=== PATIENT | female | born 1960 | race Caucasian/White ===

== ENCOUNTER 2018-12-01 11:14 | Observation (INO) | payer OTHER ==
[~2018-12-01] VITALS: Ht 170.2 cm; Wt 86.6 kg
[~2018-12-01 11:14] MED LIST: HYDROmorphone 2 MG/ML VIAL IV PRN; IV RINGERS,LACTATED 1000ML 1,000 ML IV SCH; LIDOCAINE 1% PF 2 ML VIAL. ID PRN; MORPHINE SULFATE 4 MG/ML VIAL. IV PRN; ONDANSETRON PF 4 MG/2 ML VIAL. IV PRN; PROCHLORPERAZINE 10 MG/2 ML VIAL. IV PRN; fentaNYL PF VIAL 100 MCG/2 ML VIAL IV PRN
[2018-12-01] MEDS ORDERED: ATOR10TA60 PO (11:32)
[2018-12-01] MEDS ORDERED: METF500T16 PO (11:33)
[2018-12-01] MEDS ORDERED: HYDR12.575 PO (11:33)
[2018-12-01] MEDS ORDERED: BLAC160C PO (11:34)
[2018-12-01] MEDS ORDERED: CALC300T5 PO (11:36)
[2018-12-01] MEDS ORDERED: cbd oil SL (11:38)
[2018-12-01] MEDS ORDERED: REMIFENTANIL 2 MG VIAL. IV ONE (12:19)
[2018-12-01] MEDS ORDERED: LIDOCAINE 1%/EPI 1:100,000 20 ML VIAL. ONE (12:25)
[2018-12-01] MEDS ORDERED: EPINEPHrine VIAL 30 MG/30 ML VIAL ONE (12:25)
[2018-12-01] MEDS ORDERED: BACITRACIN TOPICAL OINT 14GM TUBE. TP ONE (12:25)
[2018-12-01] MEDS ORDERED: 0.9 % SODIUM CHLORIDE 20 ML VIAL. IJ ONE ×2 (12:42)
[2018-12-01] MEDS ORDERED: LIDOCAINE 4% KIT 4 ML SOLUTION. TP ONE (12:51)
[2018-12-01] MEDS ORDERED: DEXAMETHASONE SOD PHOS 20 MG/5 ML VIAL. ONE (12:53)
[2018-12-01] MEDS ORDERED: LIDOCAINE 2% PF 5 ML VIAL. ONE (12:53)
[2018-12-01] MEDS ORDERED: MIDAZOLAM HCL/PF 2 MG/2 ML VIAL. ONE (12:53)
[2018-12-01] MEDS ORDERED: PROPOFOL 20 ML IV ONE (12:53)
[2018-12-01] MEDS ORDERED: fentaNYL PF VIAL 100 MCG/2 ML VIAL ONE (12:53)
[2018-12-01] MEDS ORDERED: SUCCINYLCHOLINE 200 MG/10 ML VIAL. ONE (12:53)
[2018-12-01] MEDS ORDERED: FAMOTIDINE 20 MG/2 ML VIAL ONE (12:53)
[2018-12-01] MEDS ORDERED: ONDANSETRON PF 4 MG/2 ML VIAL. ONE (12:53)
[2018-12-01] MEDS ORDERED: LIDOCAINE 1%/EPI 1:100,000 20 ML VIAL. INJ ONE (13:07)
[2018-12-01] MEDS ORDERED: SEVOFLURANE > 120 MINUTES. IH ONE (15:44)
[2018-12-01] MEDS ORDERED: INSULIN LISPRO 100 UNIT/ML 3ML VIAL. SQ PRN (15:45)
--- NOTE | 2018-12-01 16:29 | PDOC4 ---
IMMEDIATE POST OP NOTE Date: Dec 01, 2018 Pre-Op Diagnosis multinodular goiter Post-Op Diagnosis same as above Procedure Performed total thyroidectomy Surgeon Dr. Emily Harper Field Enumerator none Anesthesiologist Dr. Matta Anesthesia Type: General Blood Loss 50mL Specimens Obtained 1. left thyroid lobe and isthmus 2. Right thyroid lobe 3. Left thyroid tissue r/o parathyroid Findings 1. Large multinodular goiter on left side with dominant nodules measuring >4cm 2. Multiple small nodule present within right thyroid gland 3. Recurrent laryngeal nerves intact bilaterally 4. Left parathyroid tissue was attached to thyroid specimen at the end of the case. This was reimplanted within left sternocleidomastoid muscle Complications none Operative Note #[id number] EMILY HARPER MD Dec 01, 2018 16:29
[2018-12-01] MEDS ORDERED: ONDANSETRON PF 4 MG/2 ML VIAL. IV PRN (16:30)
[2018-12-01] MEDS ORDERED: oxyCODONE/APAP 5/325 1 TAB TABLET PO PRN (16:30)
[2018-12-01] MEDS ORDERED: 0.9 % SODIUM CHLORIDE 10 ML DISP.SYRIN. IV PRN (16:30)
[2018-12-01] MEDS ORDERED: MAG HYDROX/ALUMINUM HYD/SIMETH 30 ML ORAL.SUSP PO PRN (16:30)
[2018-12-01] MEDS ORDERED: ACETAMINOPHEN 325 MG TABLET. PO PRN (16:30)
[2018-12-01] MEDS ORDERED: METOCLOPRAMIDE HCL 10 MG/2 ML VIAL. IV PRN (16:30)
[2018-12-01] MEDS ORDERED: NALOXONE 0.4 MG/ML VIAL. IV PRN (16:30)
[2018-12-01] MEDS ORDERED: LOSA50TA15 PO (16:42)
[2018-12-01] MEDS: LABETALOL 20 MG/4 ML DISP.SYRIN. IVP PRN ×2 (16:54→17:28)
[2018-12-01] MEDS ORDERED: IV RINGERS,LACTATED 1000ML 1,000 ML IV SCH (17:00)
--- NOTE | 2018-12-01 17:44 | OP ---
DATE OF SURGERY: 12/01/2018 PREOPERATIVE DIAGNOSIS: Multinodular thyroid goiter. POSTOPERATIVE DIAGNOSIS: Multinodular thyroid goiter. PROCEDURE PERFORMED: Total thyroidectomy. SURGEON: Emily Harper MD ANESTHESIA: General endotracheal anesthesia. INDICATIONS FOR SURGERY: The patient is a 58-year-old female with a history of very enlarged left thyroid nodule that measures greater than 4 cm. The patient was found to have multiple nodules bilaterally. Left side is beginning to significantly enlarged and causing compressive symptoms. The patient had an FNA, which was consistent with a benign thyroid nodule. Due to the continuing growth and enlarged thyroid gland bilaterally, the decision made for the patient to undergo the above procedure after the risks, benefits, and alternatives of surgery were thoroughly discussed with the patient and informed consent was obtained. ESTIMATED BLOOD LOSS: 50 mL. ANESTHESIOLOGIST: Vic Matta MD SPECIMENS OBTAINED: The left thyroid lobe and isthmus, the right thyroid lobe and left thyroid tissue that was sent to rule out parathyroid tissue. INTRAOPERATIVE FINDINGS: 1. A large multinodular goiter was present on the left side with a dominant nodule inferiorly measuring approximately 4 cm. 2. Multiple smaller nodules present within the right thyroid gland and isthmus. 3. The recurrent laryngeal nerves were intact at the end of the case and stimulated at 0.5 milliamps. 4. Left parathyroid tissue was found attached to the left thyroid specimen at the end of the case. A section was sent for frozen pathology, which confirmed parathyroid tissue and this was reimplanted within the left sternocleidomastoid musculature. DESCRIPTION OF THE PROCEDURE: The patient was brought back to the operating room by Anesthesia and intubated with a nerve integrity monitor, endotracheal tube in a standard fashion. A shoulder roll was placed on the patient's shoulders and a 5 cm incision was planned approximately 2 fingerbreadths above the sternal notch. This was injected in a subcutaneous fashion with 1% lidocaine with 1:100,000 epinephrine. The patient was then prepped and draped in standard fashion. Nerve integrity monitor was also set up and verified for accuracy. This was used throughout the case to protect the recurrent laryngeal nerves. A 15 blade was then used to cut down to the skin and subcutaneous tissue. Bovie electrocautery was further used to cut down through the subcutaneous fat and subplatysmal layers. Subplatysmal flaps were then elevated superiorly to the thyroid notch, inferiorly to the sternal notch, laterally to the sternocleidomastoid muscles bilaterally. Jaylan retractor was placed to protect the skin edges throughout the case. The strap musculature was then at the midline and I dissected the strap musculature off the anterior surface of the left thyroid gland. Left thyroid gland was severely enlarged with multiple thyroid nodules present. I carefully dissected down to the superior pole of the thyroid gland using LigaSure cautery. I also dissected on the lateral aspect dissecting through the middle thyroid vein. We gently retracted the gland medially. In doing so, we did compress one of the largest thyroid nodules that was present superiorly. I identified on the inferior undersurface of the thyroid gland. I identified the recurrent laryngeal nerve and traced it until I entered into the larynx at the cricothyroid notch. Using bipolar electrocautery, I dissected the thyroid specimen away from the recurrent laryngeal nerve. I dissected through Michael ligament using bipolar electrocautery as well as a 15 blade. Once I was carefully away from the recurrent laryngeal nerve, I continued to dissect the large thyroid specimen away from the surrounding tissue using LigaSure cautery. At the paratracheal tissue, I used Bovie electrocautery to dissect the thyroid gland away from the paratracheal tissue. I continued my dissection towards the midline and then cut through the thyroid isthmus using LigaSure cautery. I inspected this large thyroid specimen on the back table. There was a tissue attached to the deep surface of the thyroid gland that was concerning for possible parathyroid tissue. I dissected this away from the thyroid tissue and took a small piece and send it to the lab for pathology. Frozen section confirmed a parathyroid tissue. The remaining parathyroid gland was placed in saline for the use at the end of the case. I then examined the surgical bed on the left side. Adequate hemostasis was confirmed using bipolar electrocautery. I did identify tissue that appeared to be the superior parathyroid tissue that was intact at the end of the case and had a good vascular supply. The recurrent laryngeal was again identified and stimulated at 0.5 milliamps. My attention was then taken to the right thyroid gland. In a similar fashion, I dissected the strap musculature off the anterior surface of the right thyroid gland. There were multiple nodules present on the right thyroid gland, but this gland was not nearly as enlarged as the left. I then carefully dissected around the superior pole of the thyroid gland using LigaSure cautery to dissect through the superior vascular bundle. I also dissected through the middle thyroid vein laterally and retracted the gland medially. I carefully used bipolar electrocautery to dissect on the deep surface of the thyroid gland. I identified parathyroid tissue. This was carefully dissected away from the thyroid gland. I also identified the recurrent laryngeal nerve and traced it until I entered into the larynx at the cricothyroid notch. I carefully used bipolar electrocautery to dissect the thyroid gland away from the recurrent laryngeal nerve. I also dissected through Michael ligament using bipolar cautery as well as a 15 blade. Once I was safely away from the recurrent laryngeal nerve, I dissected the remaining aspect of the thyroid gland away from the surrounding tissue using LigaSure cautery. I dissected the paratracheal tissue off of the trachea using Bovie electrocautery. The right thyroid specimen was completely removed. This was then again inspected at the back table. There was no evidence of attached parathyroid tissue. This was sent for permanent pathology. I then again inspected the surgical bed. I used bipolar electrocautery to obtain hemostasis. The recurrent laryngeal nerve was again identified on the right side and it stimulated at 0.5 milliamps at the end of the case. The parathyroid tissue that was right near the recurrent laryngeal nerve as it entered into the larynx, again appeared healthy at this point in the case. I ensured adequate hemostasis on the left side as well. Wanda powder was placed within the surgical bed bilaterally. A 10-Upper Sorbian fully fluted drain was placed within the surgical bed. This was brought out through the midline of the strap musculature. The strap musculature was closed with a 3-0 Vicryl suture. The Jaylan retractor was removed. I then made a stab incision just left lateral to my incision and the drain was brought out through the stab incision. I sutured the drain to the skin using 3-0 nylon suture. I ensured adequate hemostasis in the subplatysmal layer. The platysma and deep dermal layers were then closed with buried interrupted sutures of 4-0 Vicryl and a running horizontal mattress suture of 5-0 Prolene was used to close the skin. Mupirocin ointment was placed along the incision. The patient was now turned back over to Anesthesia and extubated without complication. Our sponge and instrument counts correct at the end of the case. COMPLICATIONS: None. DISPOSITION: Stable and transferred to recovery. EMILY HARPER MD DR: CASE/sabra JOB#: [id number] / [id number] MARTIN
--- NOTE | 2018-12-01 17:45 | NUR ---
Pt arrives via bed from PACU. Pt A&Ox4 c/o neck pain 02/10. Head to toe assessment complete. 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 No bleeding at this time. Pt R lateral neck noticeable larger then L. Dr. Harper notified without new orders placed. Pt at bedside. Pt laying in bed with call light in reach. JAMISON Hernandez completing admission questions. Home prescriptions left by Dr. Harper given to to fill. Copies made and placed on chart.
[2018-12-01 17:53] VITALS: BP 145/89
[2018-12-01 18:07] VITALS: BP 133/80
[2018-12-01] MEDS: BENZOCAINE/MENTHOL LOZENGE. PO PRN ×2 (18:07→22:04)
[2018-12-01] MEDS: MORPHINE SULFATE 2 MG/ML VIAL. IV PRN (18:13)
[2018-12-01 18:21] VITALS: BP 132/90
[2018-12-01 18:36] VITALS: BP 139/89
[2018-12-01 19:00] VITALS: BP 135/80
[2018-12-01] MEDS: DOCUSATE SODIUM 100 MG CAPSULE. PO SCH (21:00)
[2018-12-01] MEDS: MUPIROCIN 2 % NASAL OINTMENT 22GM TUBE. TP SCH (22:19)
[2018-12-01 23:00] VITALS: BP 123/73
[2018-12-01 23:15] LABS: CALCIUM PTH 9.1 mg/dL (8.7-10.2); CREATININE PTH 0.61 mg/dL (0.57-1.00); PHOSPHORUS PTH 3.1 mg/dL (2.5-4.5); PTH INTACT 31 pg/mL (15-65)
[2018-12-02] MEDS: MORPHINE SULFATE 2 MG/ML VIAL. IV PRN (02:24)
[2018-12-02 03:00] VITALS: BP 110/75
[2018-12-02] MEDS ORDERED: LEVOTHYROXINE 137 MCG TABLET PO SCH (06:00)
[2018-12-02] MEDS: oxyCODONE/APAP 5/325 1 TAB TABLET PO PRN ×2 (06:09→11:29)
[2018-12-02 07:00] VITALS: BP 108/68
[2018-12-02 08:11] LABS: BASO % 0 % (0-3); EOS % 0 % (0-3); HEMATOCRIT 38.9 % (36.0-47.0); HEMOGLOBIN 12.9 g/dL (12.0-15.5); LYMPH # 2.1 x10^3/uL (1.0-4.8); LYMPH % 15 % (24-48); MEAN CORPUSCULAR HEMOGLOBIN 29 pg (25-35); MEAN CORPUSCULAR HGB CONC 33 g/dL (31-37); MEAN CORPUSCULAR VOLUME 88 fL (79-100); MONO # 0.2 x10^3/uL (0.0-1.1); MONO % 2 % (0-9); NEUT # 11.4 x10^3uL (1.8-7.7); NEUT % 83 % (31-73); PLATELET COUNT 225 x10^3/uL (140-400); RED BLOOD COUNT 4.44 x10^6/uL (3.50-5.40); RED CELL DISTRIBUTION WIDTH 13.7 % (11.5-14.5); WHITE BLOOD COUNT 13.7 x10^3/uL (4.0-11.0)
[2018-12-02] MEDS: MUPIROCIN 2 % NASAL OINTMENT 22GM TUBE. TP SCH ×2 (08:34→13:57)
[2018-12-02 08:35] LABS: CALCIUM 8.8 mg/dL (8.5-10.1); CREATININE 0.7 mg/dL (0.6-1.0); GFR 86.6; POTASSIUM 3.6 mmol/L (3.5-5.1)
[2018-12-02] MEDS: DOCUSATE SODIUM 100 MG CAPSULE. PO SCH (08:35)
--- NOTE | 2018-12-02 08:58 | NUR ---
No intervention needed from 0900 electrolyte protocol.
[2018-12-02] MEDS ORDERED: ELECTROLYTE (NON-ICU) PROTOCOL MC SCH (09:00)
[2018-12-02 10:24] LABS: CALCIUM PTH 8.9 mg/dL (8.7-10.2); CREATININE PTH 0.61 mg/dL (0.57-1.00); PHOSPHORUS PTH 2.3 mg/dL (2.5-4.5); PTH INTACT 26 pg/mL (15-65)
--- NOTE | 2018-12-02 10:25 | NUR ---
SW following for discharge planning. Discussed with RN, RN advised no SW needs at this time. SW will continue to follow.
[2018-12-02 11:00] VITALS: BP 110/71
[2018-12-02] MEDS ORDERED: LEVO137T2 PO (14:22)
[2018-12-02] MEDS ORDERED: CALC300T5 PO (14:22)
[2018-12-02] MEDS ORDERED: MUPI22OI2 TP (14:22)
[2018-12-02] MEDS ORDERED: OXYC1TAB15 PO (14:22)
--- NOTE | 2018-12-02 16:03 | NUR ---
Pt. discharged to home, Rx given to yesterday per Dr. Katheryn Harper. Pt verbalized understanding of discharge instructions. Neck incision CDI, no oozing noted. LUCERO drain d/c'd per Dr. Katheryn Harper.
--- NOTE | 2018-12-05 16:07 | PATHOLOGY ---
[facility] Accession Number: [id number] . 01 Material submitted: . PART A: LEFT THYROID TISSUE R/O LEFT PARATHYROID - FS PART B: LEFT THYROID AND ISTHMUS PART C: RIGHT THYROID LOBE . 01 Clinical history: . Multi jose . 02 Diagnosis: A. Left thyroid tissue rule out parathyroid: - Parathyroid tissue identified. . B. Thyroid lobe and isthmus, left thyroid lobectomy and isthmusectomy: - Adenomatous nodules, multiple, the largest measuring 4.0 cm, showing focal sclerosis and dystrophic calcification. - Single left perithyroidal lymph node negative for tumor. . C. Thyroid lobe, right thyroid lobectomy: - Adenomatous nodules, multiple, the largest measuring 1.3 cm in greatest dimension. - Single right perithyroidal lymph node negative for tumor. - No parathyroid glands identified. LBQ/12/05/2018 . 02 Comment: There is no evidence of malignancy. (JPM/db; 12/05/2018) . 02 Electronically signed: . Vic Gore MD, Pathologist NPI- [id number] . 01 Gross description: . A. Received fresh for intraoperative frozen section consultation, labeled, "Randi Dominguez - Left thyroid tissue, rule out left parathyroid", is a small segment of yellow and reddish-brown focally cauterized soft tissue measuring up to 0.5 cm in greatest dimension. This is submitted for frozen section without sectioning as FSA1. The tissue remaining from frozen section is submitted for permanent sections as A1. (JPM:mml; 12/01/2018) . B. The specimen is received in formalin, labeled "AlbertoRandi, thyroid and isthmus left" and consists of a 48 g enlarged left lobe of thyroid (6.2 x 5.0 x 3.5 cm) and isthmus (3.2 x 2.3 cm). The capsule is purple-swift and disrupted with friable nodule protruding from the disruption. The specimen is inked black with the disruption inked orange. It is sectioned S-I to reveal the lobe has been almost entirely replaced by multiple swift, friable to solid colloid nodules with focal calcifications. The nodules occupy over 95% of the specimen with the less than 5% consisting of soft brown-red parenchyma at the isthmus. The nodules range from 0.1 cm to 4.0 cm. Toll Mechanic sections are submitted from S-I in B1-B6 with disruption/calcification in B3 following decalcification. . C. The specimen is received in formalin, labeled "Randi Dominguez, right thyroid lobe" and consists of a 12 g right lobe of thyroid measuring 5.1 x 2.6 x 2.3 cm. The capsule is intact with thin adhesions. It is inked black and sectioned S-I to reveal multiple pink-swift colloid nodules measuring between 0.1 cm and 1.3 cm which occupy approximately 60% of the parenchyma. The uninvolved parenchyma is soft brown-red. Toll Mechanic sections are from S-I submitted in C1-C5. (SDY; 12/03/2018) . . INTRAOPERATIVE FROZEN SECTION CONSULTATION: (Dr. Vic Gore) . FSA1. Left thyroid tissue, rule out left parathyroid: - Parathyroid tissue identified. . The results are reported to Dr. Harper in the operating room. (JPM:mmtacho; 12/01/2018) . . Frozen section performed at [facility], [address] [place] [id number]. SYU/QLM . 02 Pathologist provided ICD-10: E04.1, E07.9 . 02 CPT . 521650, 043583, [id number] Specimen Comment: A courtesy copy of this report has been sent to Specimen Comment: [phone]. Specimen Comment: Report sent to / DR CORONA Performed at: [address], [place], [place] [id number] MD Josh Metz MD Phone: [phone] Performed at: 02 [facility] [address], [place] [id number] MD Vic Gore MD Phone: [phone]
== END 2018-12-02 15:55 | disposition home or self-care (01) ==
LOC: SURG 11:14 → 4 NORTH 16:36
PROVIDERS: ADMIT Otolaryngology; ATTEND Otolaryngology
DX: E04.2 Nontoxic multinodular goiter (principal); E11.9 Type 2 diabetes mellitus without complications; I10 Essential (primary) hypertension; Z90.710 Acquired absence of both cervix and uterus
CPT/HCPCS: 36415; 60240; 80048; 82310; 82962; 83735; 83970; 85025; 88305; 88331; 96374; 96376; A7015; G0378; G0379; J0330; J0696; J1100; J1815; J2001; J2250; J2270; J2704; J3010; J3490; J7120; J0171; J2405